=== PATIENT | female | born 1970 | race Caucasian/White ===

== ENCOUNTER 2022-07-12 13:46 | Emergency (ER) | payer OTHER ==
[~2022-07-12] VITALS: Ht 165.1 cm; Wt 53.5 kg
== END 2022-07-12 16:54 | disposition home or self-care (01) ==
LOC: ER 13:46
DX: R05.9 Cough, unspecified (principal); Z20.822 Contact with and (suspected) exposure to COVID-19

== ENCOUNTER 2022-10-12 11:29 | Outpatient (CLI) | payer OTHER ==
[~2022-10-12 11:29] MED LIST: AMOX-CLAV 875-1 EACH PO; FLONASE16 GM NASAL
== END 2022-10-12 11:38 | disposition home or self-care (01) ==
LOC: TOM 11:29
PROVIDERS: ATTEND Pediatrics
DX: J32.9 Chronic sinusitis, unspecified (principal)

== ENCOUNTER 2023-03-01 12:47 | Outpatient (CLI) | payer OTHER | END 2023-03-01 12:55 | disposition home or self-care (01) | LOC: SONOGRAMA 12:47 | PROVIDERS: ATTEND Obstetrics & Gynecology Maternal & Fetal Medicine | DX: N60.19 Diffuse cystic mastopathy of unspecified breast (principal); N63.0 Unspecified lump in unspecified breast; N60.11 Diffuse cystic mastopathy of right breast ==